=== PATIENT | male | born 1975 | race Caucasian/White ===

== ENCOUNTER 2021-02-11 18:18 | Day surgery (SDC) | payer OTHER ==
--- NOTE | 2021-02-11 19:11 | EDM.PDOC ---
ED HPI GENERAL MEDICAL PROBLEM - General Chief Complaint: Abdominal Pain Stated Complaint: ABDOMINAL PAIN Time Seen by Provider: 02/11/21 18:25 Source of Information: Reports: Patient, RN Notes Reviewed History Limitations: Reports: No Limitations - History of Present Illness INITIAL COMMENTS - FREE TEXT/NARRATIVE: Pt is a 45 year old male presenting to the ER from the [facility] with a 2 day history of upper abdominal pain and vomiting. He reports subjective fever. Denies diarrhea. He has had similar episodes in the past that would self resolve within approximately 8 hours. He had blood work completed at [facility] and was found to have WBC's elevated at 19. CT scan of abdomen and pelvis with IV contrast was ordered and completed at our facility. Results showed slight fluid suggested around the gallbladder with mild inflammatory change raising the possibility of cholecystitis. Abdomen Pain Score (Numeric/FACES): 8 - Related Data Allergies Allergy/AdvReac Type Severity Reaction Status Date / Time Penicillins Allergy Unknown Cannot Verified 02/12/21 00:00 Remember Home Meds: Home Meds Acetaminophen/oxyCODONE [Percocet 325-5 MG] 1 tab PO Q6H PRN 14 Days #15 tab 02/11/21 [Rx] Docusate Sodium [Colace] 100 mg PO BID 20 Days #40 cap 02/11/21 [Rx] Ibuprofen 600 mg PO Q6H PRN 14 Days #60 tablet 02/11/21 [Rx] Omeprazole 20 mg PO DAILY PRN 02/11/21 [History] Past Medical History Gastrointestinal History: Reports: Other (See Below) Other Gastrointestinal History: H.Pylori Musculoskeletal History: Reports: Back Pain, Chronic, Other (See Below) Other Musculoskeletal History: back surgery - Infectious Disease History Infectious Disease History: Reports: Helicobacter Pylori - Past Surgical History Musculoskeletal Surgical History: Reports: Shoulder Surgery, Other (See Below) Other Musculoskeletal Surgeries/Procedures:: left knee patella tndon repair ED ROS GENERAL - Review of Systems Review Of Systems: See Below Constitutional: Reports: Decreased Appetite. Denies: Fever HEENT: Reports: No Symptoms Respiratory: Reports: No Symptoms Cardiovascular: Reports: No Symptoms Endocrine: Reports: No Symptoms GI/Abdominal: Reports: Abdominal Pain, Diarrhea, Nausea, Vomiting : Reports: No Symptoms Musculoskeletal: Reports: No Symptoms Skin: Reports: No Symptoms Neurological: Reports: No Symptoms Psychiatric: Reports: No Symptoms Hematologic/Lymphatic: Reports: No Symptoms Immunologic: Reports: No Symptoms ED EXAM, GI/ABD - Physical Exam Exam: See Below Exam Limited By: No Limitations General Appearance: Alert, WD/WN, No Apparent Distress Respiratory/Chest: No Respiratory Distress, Lungs Clear, Normal Breath Sounds, No Accessory Muscle Use, Chest Non-Tender Cardiovascular: Normal Peripheral Pulses, Regular Rate, Rhythm, No Edema, No Gallop, No JVD, No Murmur, No Rub GI/Abdominal Exam: Normal Bowel Sounds, Soft, No Distention, No Abnormal Bruit, No Mass, Pelvis Stable, Tender (RUQ. Negative Sandoval sign.) Neurological: Alert, Oriented, CN II-XII Intact, Normal Cognition, Normal Gait, Normal Reflexes, No Motor/Sensory Deficits Psychiatric: Normal Affect, Normal Mood Skin Exam: Warm, Dry, Intact, Normal Color, No Rash Course - Vital Signs Last Recorded V/S: Last Vital Signs Temp 98.1 F 02/12/21 11:06 Pulse 91 02/12/21 11:06 Resp 12 02/12/21 11:06 BP 111/66 02/12/21 11:06 Pulse Ox 92 L 02/12/21 11:06 - Orders/Labs/Meds Orders: Active Orders 24 hr Category Date Time Status Patient Status [ADT] Routine ADT 02/12/21 11:19 Active Antiembolic Devices [RC] PER UNIT ROUTINE Care 02/12/21 10:41 Active Communication Order [RC] ROUTINE Care 02/11/21 23:01 Active Cooling Warming Measures [RC] ASDIRECTED Care 02/11/21 23:01 Active Notify Provider [RC] ASDIRECTED Care 02/11/21 23:01 Active Oxygen Therapy [RC] ASDIRECTED Care 02/11/21 23:01 Active Pulse Oximetry [RC] ASDIRECTED Care 02/11/21 23:01 Active RT Incentive Spirometry [RC] Q1HWA Care 02/12/21 10:40 Active Ready for Discharge [RC] PER UNIT ROUTINE Care 02/12/21 10:38 Active Vital Signs [RC] Q4H Care 02/11/21 23:01 Active Regular Diet [DIET] Diet 02/12/21 Breakfast Active CBC W/O DIFF,HEMOGRAM [HEME] MOTH@0700 Lab 02/14/21 07:00 Ordered CBC W/O DIFF,HEMOGRAM [HEME] MOTH@0700 Lab 02/17/21 07:00 Ordered CBC W/O DIFF,HEMOGRAM [HEME] MOTH@699 Lab 02/21/21 07:00 Ordered CBC W/O DIFF,HEMOGRAM [HEME] MOTH@699 Lab 02/24/21 07:00 Ordered CBC W/O DIFF,HEMOGRAM [HEME] MOTH@00 Lab 02/28/21 07:00 Ordered CBC W/O DIFF,HEMOGRAM [HEME] MOTH@699 Lab 03/03/21 07:00 Ordered Acetaminophen/oxyCODONE [Percocet 325-5 MG] Med 02/11/21 23:10 Active 1 tab PO Q6H PRN HYDROmorphone [Dilaudid] Med 02/11/21 23:01 Active 0.5 mg IVPUSH Q1H PRN Heparin Sodium Med 02/12/21 18:00 Active 5,000 units SUBCUT Q8H Ibuprofen [Motrin 100 MG/5 ML Susp] Med 02/11/21 23:10 Active 600 mg PO Q6H PRN Pantoprazole [ProTONIX] Med 02/12/21 10:40 Active 40 mg PO DAILY PRN fentaNYL [Sublimaze] Med 02/11/21 23:01 Active 50 mcg IVPUSH Q5M PRN Sequential Compression Device [OM.PC] Routine Oth 02/12/21 10:40 Ordered Medication Orders Fentanyl (Fentanyl 100 Mcg/2 Ml Sdv) 50 mcg IVPUSH Q5M PRN PRN Reason: Pain Heparin Sodium (Porcine) (Heparin Sodium 5,000 Units/Ml Vial) 5,000 units SUBCUT Q8H [facility] Last Admin: 02/12/21 18:03 Dose: 5,000 units Documented by: AUDRA Hydromorphone HCl (Hydromorphone 0.5 Mg/0.5 Ml Syringe) 0.5 mg IVPUSH Q1H PRN PRN Reason: Pain Ibuprofen (Ibuprofen Susp 100 Mg/5 Ml 5 Ml Ud Cup) 600 mg PO Q6H PRN PRN Reason: Pain (mild 1-3) Last Admin: 02/12/21 15:36 Dose: 600 mg Documented by: AUDRA Oxycodone/Acetaminophen (Acetaminophen/Oxycodone 325-5 Mg Tab) 1 tab PO Q6H PRN PRN Reason: Pain (moderate 4-6) Last Admin: 02/12/21 07:43 Dose: 1 tab Documented by: AUDRA Pantoprazole Sodium (Pantoprazole 40 Mg Tab.Cr) 40 mg PO DAILY PRN PRN Reason: Abdominal Pain Last Admin: 02/12/21 11:00 Dose: 40 mg Documented by: AUDRA Labs: Laboratory Tests 02/11/21 02/12/21 Range/Units 18:45 11:39 WBC 13.09 H (4.23-9.07) K/mm3 RBC 4.62 L (4.63-6.08) M/mm3 Hgb 13.6 L (13.7-17.5) gm/dl Hct 42.9 (40.1-51.0) % MCV 92.9 H (79.0-92.2) fl MCH 29.4 (25.7-32.2) pg MCHC 31.7 L (32.2-35.5) g/dl RDW Std Deviation 47.6 H (35.1-43.9) fL Plt Count 252 (163-337) K/mm3 MPV 12.6 H (9.4-12.3) fl Neut % (Auto) 84.5 H (34.0-67.9) % Lymph % (Auto) 9.4 L (21.8-53.1) % Baker % (Auto) 5.8 (5.3-12.2) % Eos % (Auto) 0 L (0.8-7.0) Baso % (Auto) 0.1 (0.1-1.2) % Neut # (Auto) 11.06 H (1.78-5.38) K/mm3 Lymph # (Auto) 1.23 L (1.32-3.57) K/mm3 Baker # (Auto) 0.76 (0.30-0.82) K/mm3 Eos # (Auto) 0.00 L (0.04-0.54) K/mm3 Baso # (Auto) 0.01 (0.01-0.08) K/mm3 Manual Slide Review Abnormal smear SARS-CoV-2 RNA (YUSUF) Negative (NEGATIVE) Meds: Medications Generic Name Dose Route Start Last Admin Trade Name Freq PRN Reason Stop Dose Admin Fentanyl 50 mcg 02/11/21 23:01 Fentanyl 100 Mcg/2 Ml Sdv IVPUSH Q5M PRN Pain Heparin Sodium (Porcine) 5,000 units 02/12/21 18:00 02/12/21 18:03 Heparin Sodium 5,000 Units/Ml Vial SUBCUT 5,000 units Q8H OLGA LIDIA Administration Hydromorphone HCl 0.5 mg 02/11/21 23:01 Hydromorphone 0.5 Mg/0.5 Ml Syringe IVPUSH Q1H PRN Pain Ibuprofen 600 mg 02/11/21 23:10 02/12/21 15:36 Ibuprofen Susp 100 Mg/5 Ml 5 Ml Ud Cup PO 600 mg Q6H PRN Administration Pain (mild 1-3) Oxycodone/Acetaminophen 1 tab 02/11/21 23:10 02/12/21 07:43 Acetaminophen/Oxycodone 325-5 Mg Tab PO 1 tab Q6H PRN Administration Pain (moderate 4-6) Pantoprazole Sodium 40 mg 02/12/21 10:40 02/12/21 11:00 Pantoprazole 40 Mg Tab.Cr PO 40 mg DAILY PRN Administration Abdominal Pain Discontinued Medications Generic Name Dose Route Start Last Admin Trade Name Freq PRN Reason Stop Dose Admin Bupivacaine HCl/Epinephrine Bitart Confirm 02/11/21 19:53 02/11/21 20:35 Bupivacaine 0.5%/Epinephrine 1:200,000 50 Ml Mdv Administered 02/11/21 19:54 30 ml Dose Administration 50 ml .ROUTE .STK-MED ONE Fentanyl Confirm 02/11/21 19:39 Fentanyl 250 Mcg/5 Ml Sdv Administered 02/11/21 19:40 Dose 250 mcg .ROUTE .STK-MED ONE Fentanyl Confirm 02/11/21 20:56 Fentanyl 250 Mcg/5 Ml Sdv Administered 02/11/21 20:57 Dose 250 mcg .ROUTE .STK-MED ONE Hydromorphone HCl Confirm 02/11/21 20:44 Hydromorphone 0.5 Mg/0.5 Ml Syringe Administered 02/11/21 20:45 Dose 0.5 mg .ROUTE .STK-MED ONE Cefoxitin Sodium 2 gm/ Premix 50 mls @ 100 mls/hr 02/11/21 19:26 02/11/21 19:40 IV 02/11/21 19:55 100 mls/hr ONETIME ONE Administration Lidocaine HCl Confirm 02/11/21 19:39 Xylocaine-Mpf 1% Administered 02/11/21 19:40 Dose 4 mls @ as directed .ROUTE .STK-MED ONE Lactated Ringer's Confirm 02/11/21 20:30 Ringers, Lactated Administered 02/11/21 20:31 Dose 1,000 mls @ as directed .ROUTE .STK-MED ONE Lactated Ringer's Confirm 02/11/21 20:34 Ringers, Lactated Administered 02/11/21 20:35 Dose 1,000 mls @ as directed .ROUTE .STK-MED ONE Lactated Ringer's Confirm 02/11/21 22:26 Ringers, Lactated Administered 02/11/21 22:27 Dose 1,000 mls @ as directed .ROUTE .STK-MED ONE Ketorolac Tromethamine Confirm 02/11/21 20:29 Ketorolac 30 Mg/Ml Sdv Administered 02/11/21 20:30 Dose 30 mg .ROUTE .STK-MED ONE Lidocaine/Epinephrine Confirm 02/11/21 19:53 02/11/21 20:35 Lidocaine 1% With Epinephrine 1:100,000 10 Ml Mdv Administered 02/11/21 19:54 30 ml Dose Administration 30 ml .ROUTE .STK-MED ONE Midazolam HCl Confirm 02/11/21 19:39 Midazolam 1 Mg/Ml 2 Ml Sdv Administered 02/11/21 19:40 Dose 2 mg .ROUTE .STK-MED ONE Ondansetron HCl Confirm 02/11/21 19:38 Ondansetron 4 Mg/2 Ml Sdv Administered 02/11/21 19:39 Dose 4 mg .ROUTE .STK-MED ONE Propofol Confirm 02/11/21 19:39 Propofol 200 Mg/20 Ml Sdv Administered 02/11/21 19:40 Dose 200 mg .ROUTE .STK-MED ONE Rocuronium Gibson Confirm 02/11/21 19:38 Rocuronium 50 Mg/5 Ml Vial Administered 02/11/21 19:39 Dose 50 mg .ROUTE .STK-MED ONE - Re-Assessments/Exams Free Text/Narrative Re-Assessment/Exam: Pt is a 45 year old male presenting to ER from the walk-in clinic for evaluation of cholecystitis. Lab work was completed and showed elevated at 19. Dr. Menard is here to see the patient as well. On exam, pt has diffuse RUQ tenderness. Negative Murpheys signs. Dr. Menard discussed with patient that the only treatment at this point is to have his gallbladder removed. Pt is from [place] and is concerned that he has nowhere to stay postop as his hotel only has availablility until . He would like to go home to [place] to have the surgery. Dr. Menard discussed that she does not recommend this. He would like to make some phone calls and will decide if he will proceed with the surgery. I have ordered a COVID test. 02/11/21 19:25 Pt has agreed to proceed with cholecystectomy. OR crew has been notified. COVID results are pending. Departure - Departure Time of Disposition: 19:25 Disposition: DC/Tfer to [facility] Condition: Good Clinical Impression: Acute cholecystitis - Discharge Information Sepsis Event Note (ED) - Evaluation Sepsis Screening Result: No Definite Risk - Focused Exam Vital Signs: Vital Signs Temp Pulse Resp BP Pulse Ox 02/12/21 11:06 98.1 F 91 12 111/66 92 L
[2021-02-11] MEDS ORDERED: cefOXitin 2 GM in Premix Bag 1 BAG IV ONE (19:26)
[2021-02-11] MEDS ORDERED: Rocuronium 50 MG/5 ML Vial ONE (19:38)
[2021-02-11] MEDS ORDERED: Ondansetron 4 MG/2 ML SDV ONE (19:38)
[2021-02-11] MEDS ORDERED: fentaNYL 250 MCG/5 ML SDV ONE ×2 (19:39→20:56)
[2021-02-11] MEDS ORDERED: Propofol 200 MG/20 ML SDV ONE (19:39)
[2021-02-11] MEDS ORDERED: Lidocaine 1% 4 ML ONE (19:39)
[2021-02-11] MEDS ORDERED: Midazolam 1 MG/ML 2 ML SDV ONE (19:39)
[2021-02-11] MEDS ORDERED: Lidocaine 1% with EPINEPHrine 1:100,000 10 ML MDV ONE (19:53)
[2021-02-11] MEDS ORDERED: Bupivacaine 0.5%/EPINEPHrine 1:200,000 50 ML MDV ONE (19:53)
--- NOTE | 2021-02-11 19:56 | PCM.HP.2 ---
H&P History of Present Illness - General Date of Service: 02/11/21 Admit Problem/Dx: Admission Diagnosis/Problem Admission Diagnosis/Problem Cholecystitis Source of Information: Patient, Provider History Limitations: Reports: No Limitations - History of Present Illness Initial Comments - Free Text/Narative: The patient is a 45 y/o gentleman who presents with a 2 day history of upper abdominal pain. He reports having fever/chills and vomiting as well. He states the pain awoke him and did not subside. He has had 10-15 similar episodes in the past, but they have always resolved. He also has heartburn, which he treats with intermittent omeprazole. He denies any diarrhea, constipation, melena or hematochezia. No jaundice or icterus. He was initially evaluated in the walk-in clinic with elevated WBC 19K, with normal liver enzymes and bilirubin level. He was sent for CT abdomen/pelvis which was revealing of an edematous gallbladder consistent with cholecystitis. Abdomen Pain Score (Numeric/FACES): 8 - Related Data Allergies/Adverse Reactions: Allergies Allergy/AdvReac Type Severity Reaction Status Date / Time No Known Allergies Allergy Verified 02/11/21 17:16 Home Medications: Home Meds Omeprazole 20 mg PO DAILY PRN 02/11/21 [History] Past Medical History Gastrointestinal History: Reports: GERD, Helicobacter Pylori Musculoskeletal History: Reports: Back Pain, Chronic, Other (See Below) Other Musculoskeletal History: back surgery - Infectious Disease History Infectious Disease History: Reports: Helicobacter Pylori - Past Surgical History Musculoskeletal Surgical History: Reports: Shoulder Surgery, Other (See Below) Other Musculoskeletal Surgeries/Procedures:: left knee patella tndon repair Social & Family History - Family History Endocrine/Metabolic: Reports: Diabetes, type II Oncologic: Reports: Esophageal - Tobacco Use Tobacco Use Status *Q: Never Tobacco User - Caffeine Use Caffeine Use: Reports: Energy Drinks, Soda, Tea - Recreational Drug Use Recreational Drug Use: No H&P Review of Systems - Review of Systems: Review Of Systems: See Below General: Reports: Fever, Chills HEENT: Reports: No Symptoms Pulmonary: Reports: No Symptoms Cardiovascular: Reports: No Symptoms Gastrointestinal: Reports: Abdominal Pain, Vomiting Genitourinary: Reports: No Symptoms Musculoskeletal: Reports: No Symptoms Skin: Reports: No Symptoms Neurological: Reports: No Symptoms Hematologic/Lymphatic: Reports: No Symptoms Exam - Exam Exam: See Below - Vital Signs Vital Signs: Last Vital Signs Temp 36.7 C 02/11/21 18:33 Pulse 103 H 02/11/21 18:33 Resp 20 02/11/21 18:33 BP 134/92 H 02/11/21 18:33 Pulse Ox 97 02/11/21 18:33 Weight: 127.573 kg - Exam Quality Assessment: No: Supplemental Oxygen General: Alert, Oriented HEENT: Conjunctiva Clear, EOMI, Mucosa Moist & Grabill Neck: Supple Lungs: Normal Respiratory Effort Cardiovascular: Regular Rate, Regular Rhythm GI/Abdominal Exam: Soft, Distended, Tender (in RUQ), Hepatomegaly Extremities: Normal Inspection, No Pedal Edema Peripheral Pulses: 2+: Dorsalis Pedis (L), Dorsalis Pedis (R) Skin: Warm, Dry, Intact Neurological: Cranial Nerves Intact Neuro Extensive - Mental Status: Normal Mood/Affect - Patient Data Lab Results Last 24 hrs: Laboratory Results - last 24 hr 02/11/21 Range/Units 18:45 SARS-CoV-2 RNA (YUSUF) Negative (NEGATIVE) Sepsis Event Note - Evaluation Sepsis Screening Result: No Definite Risk - Focused Exam Vital Signs: Vital Signs Temp Pulse Resp BP Pulse Ox 02/11/21 18:33 36.7 C 103 H 20 134/92 H 97 *Q Meaningful Use (ADM) - VTE Risk Assess *Q Each Risk Factor Represents 1 Point: Age 41 - 59 years, Minor Surgery Planned, Obesity ( BMI > 25 kg/m2) Total Score 1 Point Risk Factors: 3 - Problem List (1) Acute cholecystitis SNOMED Code(s): 78142277 ICD Code: K81.0 - ACUTE CHOLECYSTITIS Status: Acute Current Visit: Yes Problem List Initiated/Reviewed/Updated: Yes Orders Last 24hrs: Active Orders 24 hr Category Date Time Status Patient Status [ADT] Routine ADT 02/11/21 18:44 Active cefOXitin [Mefoxin in Dextrose,Iso-Osm 2 GM/50 ML] 2 gm Med 02/11/21 19:26 Active Premix Bag 1 bag IV ONETIME Schedule Procedure [COMM] Stat Oth 02/11/21 18:44 Ordered Medication Orders Cefoxitin Sodium 2 gm/ Premix 50 mls @ 100 mls/hr IV ONETIME ONE Stop: 02/11/21 19:55 Last Admin: 02/11/21 19:40 Dose: 100 mls/hr Documented by: JOEL Assessment/Plan Comment:: 45 y/o gentleman with acute cholecystitis - pt [place] out of town with no nearby family/friends. He initially wanted to return home, but discussed that this is not recommended. Pt decided to stay for surgery. Plan for laparoscopic cholecystectomy, possible open. Discussed risks of infection, bleeding, and possible bile duct injury. discussed possible chief librarian branch effects of chronic diarrhea. His written consent was obtained. - NPO - IVF resuscitation - IV cefoxitin 2g x1 Sunni Farfan MD General surgery - Mortality Measure Prognosis:: Good
[2021-02-11] MEDS ORDERED: Ketorolac 30 MG/ML SDV ONE (20:29)
[2021-02-11] MEDS ORDERED: Lactated Ringers 1,000 ML ONE ×3 (20:30→22:26)
[2021-02-11] MEDS ORDERED: HYDROmorphone 0.5 MG/0.5 ML Syringe ONE (20:44)
--- NOTE | 2021-02-11 22:55 | PCM.OPNOTE ---
- General Post-Op/Procedure Note Date of Surgery/Procedure: 02/11/21 Operative Procedure(s): laparoscopic cholecystectomy Findings: acute cholecystitis Pre Op Diagnosis: acute cholecystitis Post-Op Diagnosis: same Anesthesia Technique: General ET Tube, Local Primary Surgeon: Sunni Farfan Anesthesia Provider: Ric Jensen Pathology: gallbladder and contents Fluid Replacement, Intraop: 2,000 EBL in mLs: 50 Complications: none apparent Condition: Good
[2021-02-11] MEDS ORDERED: fentaNYL 100 MCG/2 ML SDV IVPUSH PRN (23:01)
[2021-02-11] MEDS ORDERED: HYDROmorphone 0.5 MG/0.5 ML Syringe IVPUSH PRN (23:01)
--- NOTE | 2021-02-11 23:03 | PCM.POSTAN ---
POST ANESTHESIA ASSESSMENT - MENTAL STATUS Mental Status: Alert, Oriented - VITAL SIGNS Vital Signs: Last Vital Signs Temp 36.7 C 02/11/21 18:33 Pulse 103 H 02/11/21 18:33 Resp 20 02/11/21 18:33 BP 134/92 H 02/11/21 18:33 Pulse Ox 97 02/11/21 18:33 - RESPIRATORY Respiratory Status: Respiratory Rate WNL, Airway Patent, O2 Saturation Stable, Supplemental Oxygen - CARDIOVASCULAR CV Status: Pulse Rate WNL, Blood Pressure Stable - GASTROINTESTINAL GI Status: No Symptoms - PAIN Pain Score: 0 - POST OP HYDRATION Hydration Status: Adequate & Stable - OBSERVATIONS Free Text/Narrative:: no anesthesia complications noted
--- NOTE | 2021-02-11 23:04 | PCM.PRNOTE ---
- Free Text/Narrative Note: OPERATIVE REPORT Date of Surgery/Procedure: February 11, 2021 Operative Procedure(s): laparoscopic cholecystectomy Findings: acute cholecystitis Pre Op Diagnosis: Acute cholecystitis Post-Op Diagnosis: Same Anesthesia Technique: General ET Tube Primary Surgeon: Sunni Farfan MD Anesthesia Provider: Ric Jensen CRNA Pathology: Gallbladder with contents Fluid Replacement, Intraop: 2000cc Output, Urine Amount: 0cc EBL: 50cc Drain/Tube Comments: none Indication for the procedure: The patient is a 45-year-old gentleman who presented with findings of acute cholecystitis. The patient was counseled for laparoscopic cholecystectomy, with possible conversion to open. After discussion of the risks of infection, bleeding and injury to the bile duct, the patient's consent was obtained. Description of the procedure: The patient was taken back to the operating room and placed in supine position on the operating table. SCD boots were placed and functional prior to the start of the procedure. Preoperative antibiotics were administered, Cefoxitin 2g IV. A surgical timeout was performed. The patient t hen had induction of general anesthesia and was intubated without difficulty. The patient was prepped and draped in standard surgical fashion. We began by making an infraumbilical incision and deepened this down through subcutaneous fat to the level of the fascia. This was grasped and incised. A stay suture of 0 Vicryl was placed in the fascia. We bluntly entered through the peritoneum and a finger sweep was done. The 12 mm balloon Roberts port was then inserted into the abdomen and the balloon inflated. Insufflation was attached and we had appropriate opening pressures. The abdomen was then insufflated to 15 mmHg. We inserted a scope into the abdomen. A TAP block was then performed using 1% lidocaine with epinephrine mixed with 0.5% bupivacaine with epinephrine. We then proceeded with placing our additional ports. A 5mm port was placed in the epigastric region. Two additional 5mm ports placed under direct visualization in the right upper quadrant. The patient was then positioned with head up and right side up to facilitate exposure of the gallbladder. Once we had sufficiently exposed the dome of the gallbladder. This was grasped and retracted cephalad. The gallbladder was very inflamed and friable, with puncture occuring almost immediately wiht grasping carlos gallbladder. The bile and visualized stones were removed and suctioned. We proceeded with our dissection t o expose the cystic duct and cystic artery. The amount of inflammation made the dissection very difficult. The cystic duct and artery were then clipped and cut using endoscopic scissors. A posterior artery was also encountered, this was clipped and cut. We then proceeded to fully dissect the gallbladder off of the cystic plate using the Bovie device. The amount of inflammation distorted the gallbladder wall, and also the gallbladder was intrahepatic causing the gallbladder to be dissected with some liver tissue. The gallbladder was then placed in the Endo Catch bag and withdrawn towards the umbilical port. A surgicel was placed into the dissected cavity for hemostasis. We then inspected the area of the dissection. The Bovie device was used for hemostasis. The blood and bile was suctioned from the abdomen. The cystic plate was then re-evaluated and there was no significant bleeding, with hemostasis achieved. A large gallstone was noted near the liver, and this was placed in an additional EndoCatch bag. We then desufflated the abdomen. The gallbladder and stone were withdrawn through the umbilical port site. We then proceeded to close the umbilical port site using an 0 Vicryl stitch. We had good closure of the fascia. The ports were then removed. A superficial 4-0 Monocryl suture was used to approximate the skin. The skin was covered with Dermabond surgical glue. The patient tolerated the procedure well and was extubated without difficulty. The patient was transported to the PACU in stable condition. All sponge, needle counts correct. No immediate complications noted. Complications: None apparent Condition: Good Sunni Farfan MD General Surgery
[2021-02-11] MEDS ORDERED: Ibuprofen Susp 100 MG/5 ML 5 ML UD Cup PO PRN (23:10)
[2021-02-11] MEDS ORDERED: Acetaminophen/oxyCODONE 325-5 MG Tab PO PRN (23:10)
--- NOTE | 2021-02-12 09:57 | PCM48HPAN ---
Post Anesthesia Note - EVALUATION WITHIN 48HRS OF ANESTHETIC Vital Signs in Normal Range: Yes Patient Participated in Evaluation: Yes Respiratory Function Stable: Yes Airway Patent: Yes Cardiovascular Function Stable: Yes Hydration Status Stable: Yes Pain Control Satisfactory: Yes Nausea and Vomiting Control Satisfactory: Yes Mental Status Recovered: Yes Vital Signs: Last Vital Signs Temp 37.2 C 02/12/21 07:43 Pulse 96 02/12/21 07:43 Resp 12 02/12/21 07:43 BP 105/43 L 02/12/21 07:43 Pulse Ox 92 L 02/12/21 09:00 - COMMENTS/OBSERVATIONS Free Text/Narrative:: no anesthesia complications noted
[2021-02-12] MEDS ORDERED: Pantoprazole 40 MG Tab.CR PO PRN (10:40)
--- NOTE | 2021-02-12 10:45 | PCM.SURGPN ---
- General Info Date of Service: 02/12/21 Admission Diagnosis/Problem: Acute cholecystitis Functional Status: Reports: Pain Controlled, Ambulating, Other (pt with abdominal pressure and discomfort) - Patient Data Vitals - Most Recent: Last Vital Signs Temp 37.2 C 02/12/21 07:43 Pulse 96 02/12/21 07:43 Resp 12 02/12/21 07:43 BP 105/43 L 02/12/21 07:43 Pulse Ox 92 L 02/12/21 09:00 Weight - Most Recent: 127.573 kg I&O - Last 24 Hours: Intake & Output 02/11/21 02/12/21 02/12/21 22:59 06:59 14:59 Intake Total 1999 Balance 1999 Lab Results Last 24 Hrs: Laboratory Results - last 24 hr 02/11/21 Range/Units 18:45 SARS-CoV-2 RNA (YUSUF) Negative (NEGATIVE) Med Orders - Current: Current Medications Fentanyl (Fentanyl 100 Mcg/2 Ml Sdv) 50 mcg IVPUSH Q5M PRN PRN Reason: Pain Hydromorphone HCl (Hydromorphone 0.5 Mg/0.5 Ml Syringe) 0.5 mg IVPUSH Q1H PRN PRN Reason: Pain Ibuprofen (Ibuprofen Susp 100 Mg/5 Ml 5 Ml Ud Cup) 600 mg PO Q6H PRN PRN Reason: Pain (mild 1-3) Oxycodone/Acetaminophen (Acetaminophen/Oxycodone 325-5 Mg Tab) 1 tab PO Q6H PRN PRN Reason: Pain (moderate 4-6) Last Admin: 02/12/21 07:43 Dose: 1 tab Documented by: Discontinued Medications Bupivacaine HCl/Epinephrine Bitart (Bupivacaine 0.5%/Epinephrine 1:200,000 50 Ml Mdv) Confirm Administered Dose 50 ml .ROUTE .STK-MED ONE Stop: 02/11/21 19:54 Last Admin: 02/11/21 20:35 Dose: 30 ml Documented by: Fentanyl (Fentanyl 250 Mcg/5 Ml Sdv) Confirm Administered Dose 250 mcg .ROUTE .STK-MED ONE Stop: 02/11/21 19:40 Fentanyl (Fentanyl 250 Mcg/5 Ml Sdv) Confirm Administered Dose 250 mcg .ROUTE .STK-MED ONE Stop: 02/11/21 20:57 Hydromorphone HCl (Hydromorphone 0.5 Mg/0.5 Ml Syringe) Confirm Administered Dose 0.5 mg .ROUTE .STK-MED ONE Stop: 02/11/21 20:45 Cefoxitin Sodium 2 gm/ Premix 50 mls @ 100 mls/hr IV ONETIME ONE Stop: 02/11/21 19:55 Last Admin: 02/11/21 19:40 Dose: 100 mls/hr Documented by: Lidocaine HCl (Xylocaine-Mpf 1%) Confirm Administered Dose 4 mls @ as directed .ROUTE .STK-MED ONE Stop: 02/11/21 19:40 Lactated Ringer's (Ringers, Lactated) Confirm Administered Dose 1,000 mls @ as directed .ROUTE .ST-MED ONE Stop: 02/11/21 20:31 Lactated Ringer's (Ringers, Lactated) Confirm Administered Dose 1,000 mls @ as directed .ROUTE .ST-MED ONE Stop: 02/11/21 20:35 Lactated Ringer's (Ringers, Lactated) Confirm Administered Dose 1,000 mls @ as directed .ROUTE .ST-MED ONE Stop: 02/11/21 22:27 Ketorolac Tromethamine (Ketorolac 30 Mg/Ml Sdv) Confirm Administered Dose 30 mg .ROUTE .ST-MED ONE Stop: 02/11/21 20:30 Lidocaine/Epinephrine (Lidocaine 1% With Epinephrine 1:100,000 10 Ml Mdv) Confirm Administered Dose 30 ml .ROUTE .ST-MED ONE Stop: 02/11/21 19:54 Last Admin: 02/11/21 20:35 Dose: 30 ml Documented by: Midazolam HCl (Midazolam 1 Mg/Ml 2 Ml Sdv) Confirm Administered Dose 2 mg .ROUTE .STK-MED ONE Stop: 02/11/21 19:40 Ondansetron HCl (Ondansetron 4 Mg/2 Ml Sdv) Confirm Administered Dose 4 mg .ROUTE .ST-MED ONE Stop: 02/11/21 19:39 Propofol (Propofol 200 Mg/20 Ml Sdv) Confirm Administered Dose 200 mg .ROUTE .STK-MED ONE Stop: 02/11/21 19:40 Rocuronium [place] (Rocuronium 50 Mg/5 Ml Vial) Confirm Administered Dose 50 mg .ROUTE .ST-MED ONE Stop: 02/11/21 19:39 - Exam Wound/Incisions: Healing Well, No Drainage. No: Erythema General: Alert, Oriented HEENT: EOMI Lungs: Normal Respiratory Effort GI/Abdominal Exam: Soft, Distended, Tender (mild in the RUQ and periumbilical area) Sepsis Event Note - Evaluation Sepsis Screening Result: No Definite Risk - Focused Exam Vital Signs: Vital Signs Temp Temp Pulse Pulse Resp BP BP 02/12/21 09:00 02/12/21 07:43 37.2 C 96 12 105/43 L 02/12/21 06:19 36.9 C 79 18 105/54 L 02/12/21 00:20 36.7 C 102 H 16 02/11/21 23:40 36.7 C 98 14 121/77 02/11/21 23:25 37.5 C 98 14 129/78 02/11/21 23:10 37.6 C 98 13 107/78 02/11/21 23:01 02/11/21 22:56 37.6 C 110 H 14 113/77 Pulse Ox Pulse Ox 02/12/21 09:00 92 L 02/12/21 07:43 89 L 02/12/21 06:19 99 02/12/21 00:20 97 02/11/21 23:40 97 02/11/21 23:25 96 02/11/21 23:10 97 02/11/21 23:01 97 97 02/11/21 22:56 93 L - Problem List & Annotations (1) Acute cholecystitis SNOMED Code(s): 70115706 Code(s): K81.0 - ACUTE CHOLECYSTITIS Status: Acute Current Visit: Yes - Problem List Review Problem List Initiated/Reviewed/Updated: Yes - My Orders Last 24 Hours: Active Orders 24 hr Category Date Time Status Admission Status [Patient Status] [ADT] Routine ADT 02/12/21 10:39 Ordered Patient Status [ADT] Routine ADT 02/11/21 18:44 Active Antiembolic Devices [RC] PER UNIT ROUTINE Care 02/12/21 10:41 Ordered Communication Order [RC] ROUTINE Care 02/11/21 23:01 Active Cooling Warming Measures [RC] ASDIRECTED Care 02/11/21 23:01 Active Notify Provider [RC] ASDIRECTED Care 02/11/21 23:01 Active Oxygen Therapy [RC] ASDIRECTED Care 02/11/21 23:01 Active Pulse Oximetry [RC] ASDIRECTED Care 02/11/21 23:01 Active RT Incentive Spirometry [RC] Q1HWA Care 02/12/21 10:40 Ordered Ready for Discharge [RC] PER UNIT ROUTINE Care 02/12/21 10:38 Ordered Vital Signs [RC] Q4H Care 02/11/21 23:01 Active Regular Diet [DIET] Diet 02/12/21 Breakfast Active CBC W/O DIFF,HEMOGRAM [HEME] MOTH@0700 Lab 02/14/21 07:00 Ordered CBC W/O DIFF,HEMOGRAM [HEME] MOTH@0700 Lab 02/17/21 07:00 Ordered CBC W/O DIFF,HEMOGRAM [HEME] MOTH@0700 Lab 02/21/21 07:00 Ordered CBC W/O DIFF,HEMOGRAM [HEME] MOTH@0700 Lab 02/24/21 07:00 Ordered CBC W/O DIFF,HEMOGRAM [HEME] MOTH@0700 Lab 02/28/21 07:00 Ordered CBC W/O DIFF,HEMOGRAM [HEME] MOTH@0700 Lab 03/03/21 07:00 Ordered Acetaminophen/oxyCODONE [Percocet 325-5 MG] Med 02/11/21 23:10 Active 1 tab PO Q6H PRN HYDROmorphone [Dilaudid] Med 02/11/21 23:01 Active 0.5 mg IVPUSH Q1H PRN Heparin Sodium Med 02/12/21 10:45 Ordered 5,000 units SUBCUT Q8H Ibuprofen [Motrin 100 MG/5 ML Susp] Med 02/11/21 23:10 Active 600 mg PO Q6H PRN Omeprazole Med 02/12/21 10:40 Ordered 20 mg PO DAILY PRN fentaNYL [Sublimaze] Med 02/11/21 23:01 Active 50 mcg IVPUSH Q5M PRN Schedule Procedure [COMM] Stat Oth 02/11/21 18:44 Ordered Sequential Compression Device [OM.PC] Routine Oth 02/12/21 10:40 Ordered Medication Orders Fentanyl (Fentanyl 100 Mcg/2 Ml Sdv) 50 mcg IVPUSH Q5M PRN PRN Reason: Pain Hydromorphone HCl (Hydromorphone 0.5 Mg/0.5 Ml Syringe) 0.5 mg IVPUSH Q1H PRN PRN Reason: Pain Ibuprofen (Ibuprofen Susp 100 Mg/5 Ml 5 Ml Ud Cup) 600 mg PO Q6H PRN PRN Reason: Pain (mild 1-3) Oxycodone/Acetaminophen (Acetaminophen/Oxycodone 325-5 Mg Tab) 1 tab PO Q6H PRN PRN Reason: Pain (moderate 4-6) Last Admin: 02/12/21 07:43 Dose: 1 tab Documented by: AUDRA - Assessment Assessment (Free Text/Narrative):: 45 y/o male with acute cholecystitis, now POD 1 s/p laparoscopic cholecystectomy. concern for Ileus - Plan Plan (Free Text/Narrative):: - pt may have regular diet as tolerated - po Percocet and Ibuprofen - ambulate, SCDs and heparin - monitor for increased distention, vomiting or nausea - pt to chew sugar-free gum and ambulate to stimulate bowel activity Placed in observation status from extended floor recovery. Will continue to monitor clinical progress Sunni Farfan MD General surgery
[2021-02-12] MEDS ORDERED: Heparin Sodium 5,000 Units/ML Vial SUBCUT SCH (18:00)
== END 2021-02-12 20:40 | disposition home or self-care (01) ==
LOC: JD.ED 18:18 → JD.SDS 18:49 → JD.MS 02-12 06:59 → JD.SDS 02-12 10:39 → JD.MS 02-12 10:39 → UNDOADMOB 02-12 10:39 → JD.SDS 02-12 20:40
PROVIDERS: ATTEND Surgery
DX: K80.00 Calculus of gallbladder with acute cholecystitis without obstruction (principal); K82.A1 Gangrene of gallbladder in cholecystitis; K21.9 Gastro-esophageal reflux disease without esophagitis; Z79.899 Other long term (current) drug therapy; Z20.822 Contact with and (suspected) exposure to COVID-19; Z01.812 Encounter for preprocedural laboratory examination
CPT/HCPCS: 36415; 47562; 85025; 87635; 88304; 96365; 99284; A9270; J0694; J1170; J1644; J1885; J2250; J2405; J2704; J3010; J3490; J7120; 00790; 99140; 99285; U0002